=== PATIENT | female | born 1975 | race Caucasian/White ===

== ENCOUNTER → 2019-05-27 | Outpatient (CLI) | payer OTHER ==
[~2019-05-27] MED LIST: OXYACE5T PO
== END | disposition home or self-care (01) ==
LOC: LAB 10:15 → LAB SHORT 10:15
DX: J02.9 Acute pharyngitis, unspecified (principal)
CPT/HCPCS: 87081

== ENCOUNTER 2020-12-02 08:07 | Day surgery (SDC) | payer OTHER ==
[~2020-12-02] VITALS: Ht 160 cm; Wt 70.3 kg
[~2020-12-02 08:07] MED LIST changes: +FISH OIL 1,2001 EAC7 PO; +MULTI-VITAMIN1 EAC2 PO
--- NOTE | 2020-12-02 15:35 | NUR ---
Patient up to Ambulate independently. Gait steady.ABLE TO USE THE RESTROOM WITHOUT ISSUES. Discharge instructions reviewed with patient. Patient verbalizes understanding. Copy given to patient to take home. Discharged via wheelchair to private car for ride home WITH SIGNIFICANT OTHER. PT GIVEN ICE PACK. PAIN PRESCRIPTION WITH PT IN DISCHARGE FOLDER.
== END 2020-12-02 15:37 | disposition home or self-care (01) ==
LOC: ORSCMMR 08:07 → ORD 09:30 → ORSCMMR 15:37
PROVIDERS: Surgery
PROC: 8E0W4CZ Robotic Assisted Procedure of Trunk Region, Percutaneous Endoscopic Approach (ICD-10-PCS; principal; 2020-12-02 09:30)
PROC: 0YU54JZ Supplement Right Inguinal Region with Synthetic Substitute, Percutaneous Endoscopic Approach (ICD-10-PCS; principal; 2020-12-02 09:30)
DX: K40.90 Unilateral inguinal hernia, without obstruction or gangrene, not specified as recurrent (principal)
CPT/HCPCS: 49650; S2900; C1781; J1100; J2370; J2405; J2704; J3010; J7120